=== PATIENT | male | born 1965 | race Caucasian/White ===

== ENCOUNTER → 2021-06-21 | Day surgery (SDC) | payer OTHER ==
[~2021-06-21] VITALS: Ht 172.7 cm; Wt 78.5 kg
[~2021-06-21] MED LIST: ALL DAY ALLERGY10 M2 PO; ALLERGY SHOTS; ALLOPURINOL100 MG PO; AMLODIPINE BESYL5 MG PO; HYDROCODON-ACE1 EAC2 PO; LIPITOR TAB 2020 MG PO; LISINOPRIL10 MG PO; LO-DOSE ASPIRIN81 MG PO; MONTELUKAST SOD10 MG PO; PROBENECID-COL1 EACH PO; VITAMIN B 12
== END | disposition home or self-care (01) ==
LOC: OR 06-19 11:15
DX: M18.12 Unilateral primary osteoarthritis of first carpometacarpal joint, left hand (principal); G89.29 Other chronic pain; I10 Essential (primary) hypertension; E78.5 Hyperlipidemia, unspecified; C44.90 Unspecified malignant neoplasm of skin, unspecified; J18.9 Pneumonia, unspecified organism; Z96.611 Presence of right artificial shoulder joint; Z79.82 Long term (current) use of aspirin; Z79.899 Other long term (current) drug therapy; Z82.49 Family history of ischemic heart disease and other diseases of the circulatory system
CPT/HCPCS: 73130; 76000; J0171; J0690; J1100; J2405; J2704; J2795; J3010; J7030; J7120